=== PATIENT | female | born 1990 | race Caucasian/White ===

== ENCOUNTER 2024-08-27 13:03 | Emergency (ER) | payer OTHER, BC, SELFPAY ==
[2024-08-27] VITALS (8 sets, daily range): BP systolic 119–147; BP diastolic 78–104; PULSE 77–101; RESP 16–18; TEMP 36.9; O2SAT 97–98; BMI 30.3
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
[2024-08-27 13:51] LABS: Basophils Percent Auto 0.3 % (0.0-3.0); Eosinophils Percent Auto 0.4 % (0.0-7.0); Hematocrit 38.4 % (33.0-51.0); Hemoglobin* 13.1 gm/dL (12.0-16.0); Immature Granulocytes Pct Auto 0.3 %; Lymphocytes Percent Auto 15.1 % (20-44); Mean Corpuscular HGB Conc 34 gm/dL (32-36); Mean Corpuscular Hemoglobin 32 pg (26-34); Mean Corpuscular Volume 93 fL (80-100); Monocytes Percent Auto 6.2 % (0.0-11.0); Neutrophils Percent Auto 77.7 % (42.0-72.0); Platelet Count* 293 K/uL (140-440); RDW Coefficient of Variation % 12.4 % (11.5-15.5); Red Blood Count 4.11 m/uL (4.00-5.20); White Blood Count* 13.59 K/uL (4.50-11.00)
[2024-08-27 13:56] LABS: Slide Review Reflex No
[2024-08-27 14:16] LABS: Chloride* 105 mmol/L (96-114); Potassium* 3.5 mmol/L (3.6-5.1); Sodium* 138 mmol/L (135-149)
[2024-08-27 14:19] LABS: Anion Gap 8 mEq/L (7-15); Blood Urea Nitrogen* 12 mg/dL (5-24); Calcium* 9.5 mg/dL (8.4-10.6); Carbon Dioxide* 25 mmol/L (20-32); Creatinine* 0.5 mg/dL (0.5-1.5); Est. Creatinine Clearance* 162.56; Estimated Glomerular Filt Rate 125 ml/min; Glucose* 112 mg/dL (60-115)
[2024-08-27 14:33] LABS: Troponin I* < 0.01 ng/mL (0.01-0.04)
== END 2024-08-27 15:42 | disposition home or self-care (01) ==
PROVIDERS: Emergency Provider Student in an Organized Health Care Education/Training Program
DX: M79.632 Pain in left forearm (principal); S30.1XXA Contusion of abdominal wall, initial encounter; V43.52XA Car driver injured in collision with other type car in traffic accident, initial encounter
CPT/HCPCS: 36415; 71260; 73030; 73090; 73521; 73562; 74177; 80048; 84484; 85025; 93005; 99285; 99291; G0390; Q9967